=== PATIENT | female | born 1970 | race Caucasian/White ===

== ENCOUNTER 2017-01-28 10:23 | Emergency (ER) | payer MEDICAID ==
[~2017-01-28 10:23] MED LIST: ABILIFY5 MG; ATIVAN0.5 MG; BENADRYL25 M3 PO; BENADRYL50 MG PO; CIPRO500 M1 PO; CYCLOBENZAPRINE10 M1 PO; DELTASONE50 MG PO; DOXEPIN HCL10 M1 PO; HYDROCODON-ACE1 EAC7 PO; HYDROXYZINE HCL25 M1 PO; IMITREX100 M2 PO; KLONOPIN0.5 M1 PO; KLONOPIN0.5 MG PO; LAMICTAL100 MG; MOTRIN200 MG/TA1 PO; NORCO 5/325 TAB1 TAB PO; PEPCID20 MG PO; PHENERGAN25 M1 PO; RISPERDAL2 MG PO; TOPAMAX100 M2 PO; TOPROL XL50 M1 PO; ZANTAC150 M1 PO
[2017-01-28] MEDS ORDERED: RISPERDAL4 M1 PO (13:01)
[2017-01-28] MEDS ORDERED: REMERON15 M1 PO (13:02)
[2017-01-28] MEDS ORDERED: PRILOSEC OTC20 M1 PO (13:03)
[2017-01-28 13:35] LABS: BASO % 0.3 % (0-2); EOS % 0.1 % (0-7); HCT-HEMATOCRIT 34.7 % (34.0-49.0); HGB-HEMOGLOBIN 12.3 gm/dl (12.0-15.5); IMMATURE GRANULOCYTES ABSOLUTE 0.02 tho/cmm (0-0.03); IMMATURE GRANULOCYTES PERCENT 0.3 % (0-0.3); LYMPH % 24.6 % (20-45); LYMPH ABSOLUTE COUNT 1.9 tho/cmm (0.8-4.5); MCH (MEAN CORPUSCULAR HGB) 30.8 pg (28.0-32.0); MCHC MEAN CORPUSCULAR HGB CONC 35.4 % (32.0-36.0); MCV (MEAN CELL VOLUME) 86.8 fl (82.0-96.0); MEAN PLATELET VOLUME 9.1 cmc (9.4-12.4); MONO % 4.8 % (0-12); MONOCYTE ABSOLUTE COUNT 0.4 tho/cmm (0.0-1.2); NEUTROPHIL ABSOLUTE COUNT 5.3 tho/cmm (1.6-8.0); NEUTROPHIL-AUTOMATED 5.3 tho/cmm (1.6-8.0); NEUTROPHILS % 69.9 % (40-80); PLATELET COUNT 241 tho/cmm (150-450); RED CELL DISTRIBUTION WIDTH 13.2 % (12.4-16.4); WHITE BLOOD COUNT 7.6 tho/cmm (4.0-10.0)
[2017-01-28 13:52] LABS: ALB/GLOB RATIO 1.1 (0.8-2.0); ALBUMIN 3.6 g/dl (3.5-5.0); ALKALINE PHOSPHATASE 30 U/L (33-138); ALT/SGPT 25 U/L (12-78); ANION GAP 13 mmol/L (0-20); AST/SGOT 18 U/L (10-40); BILIRUBIN,TOTAL 0.2 mg/dl (0-1.5); BLOOD UREA NITROGEN 15 mg/dl (6-24); CALCIUM 8.8 mg/dl (8.5-10.5); CARBON DIOXIDE-VENOUS 26 mmol/L (22-32); CHLORIDE 97 mmol/l (96-110); CREATININE 0.68 mg/dl (0.50-1.10); GLUCOSE 102 mg/dL (70-110); POTASSIUM 4.4 mmol/L (3.7-5.1); SODIUM 132 mmol/L (135-145); eGFR VALUE FOR BLACK >90 mL/Min
[2017-01-28 13:57] LABS: TSH-THYROID STIMULATING HORM. 0.47 uIU/ml (0.40-3.80)
[2017-01-28] MEDS ORDERED: COMPAZINE10 MG PO (14:48)
== END 2017-01-28 15:08 ==
LOC: EDMED 10:23
PROVIDERS: Emergency Medicine
DX: R51 Headache (principal); F31.9 Bipolar disorder, unspecified; F17.200 Nicotine dependence, unspecified, uncomplicated; Z90.49 Acquired absence of other specified parts of digestive tract
CPT/HCPCS: J1200; J1885; J2405; J7030